=== PATIENT | female | born 1970 | race Caucasian/White ===

== ENCOUNTER 2025-02-07 11:31 | Outpatient (CLI) | payer MEDICAID ==
--- NOTE | 2025-02-07 13:28 | RADIOLOGY REPORT ---
EXAM: DI KNEE LIMITED (AP/LAT) CLINICAL INDICATION: RIGHT JOINT KNEE PAIN TECHNIQUE: DI KNEE LIMITED (AP/LAT) Comparison: None FINDINGS/IMPRESSION: There is no evidence of acute fracture or dislocation. Moderate right knee osteoarthritis. The alignment is anatomical. There is no radiopaque foreign body.
== END 2025-02-07 23:59 | disposition home or self-care (01) ==
LOC: RAD 11:31
PROVIDERS: ATTEND Physician Assistant
DX: M17.11 Unilateral primary osteoarthritis, right knee (principal); M25.561 Pain in right knee
CPT/HCPCS: 73560